=== PATIENT | male | born 1965 | race Caucasian/White ===

== ENCOUNTER → 2016-06-01 | Outpatient (CLI) | payer OTHER ==
[2016-06-01 21:11] LABS: TESTOSTERONE TOTAL 350 ng/dL (348-1197)
== END | disposition home or self-care (01) ==
LOC: LAB 11:24
PROVIDERS: ATTEND Nurse Practitioner Occupational Health
DX: N52.9 Male erectile dysfunction, unspecified (principal)
CPT/HCPCS: 36415; 84403

== ENCOUNTER → 2016-08-19 | Outpatient (CLI) | payer OTHER ==
--- NOTE | 2016-08-19 15:37 | CARD ---
APPROVED REPORT INDICATION Cardiac clearance, Pre op RISK FACTORS Hypertension Obesity PROCEDURE The patient underwent an exercise Stress Test using the Serv[employer] protocol. Blood pressure, heart rate, a nd EKG were monitored. An Echocardiogram was performed by audio video technician in four stages in quad fashion. At peak stress four se lected images were obtained and placed side by side with resting images for comparison. STRESS ECHO FINDINGS The resting Echocardiogram showed normal left ventricular contractility with an estimated Ejection Fr action of about 65 %. Normal augmentation of myocardial wall segments using a 16 segment model. 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 Consent: The procedure was explained to the patient in lay terms. Informed consent was witnessed. Jefferson eout was entered into [employer]. History and Stress Test performed by JACKIE ALVARADO Stress Symptoms LEG FATIGUE, SOA. POST EXERCISE Reason for Termination: Reached target heart rate Target HR: 142 Max HR: 167 bpm 96% of Maximum Predicted HR: 167 bpm Exercise duration: 10:00 min:sec, 3 Stage Exercise capacity: 12.8METs Max Blood Pressure: 170/85mmHg Blood Pressure response to exercise: Normal blood pressure response during stress. Heart Rate response to exercise: WNL Chest Pain: No. Arrhythmia: No. ST Change: No. INTERPRETATION Stress EKG Conclusion: Baseline EKG showed sinus rhythm. No ischemic changes at peak stress. No arr hythmias. <Conclusion> Treadmill exercise stress echocardiogram did not show any evidence of ischemia or infarct. Normal left ventricle systolic function with ejection fraction estimated at 65%. Patient had excellent activity tolerance. Low risk for cardiac events.
== END | disposition home or self-care (01) ==
LOC: ECHO 11:04
PROVIDERS: ATTEND Internal Medicine Cardiovascular Disease
DX: Z01.818 Encounter for other preprocedural examination (principal)
CPT/HCPCS: 93017; 93350

== ENCOUNTER 2019-04-23 11:28 | Emergency (ER) | payer OTHER ==
[~2019-04-23] VITALS: Ht 177.8 cm; Wt 118.1 kg
[2019-04-23 12:00] VITALS: BP 149/84
--- NOTE | 2019-04-23 12:55 | PHYS DOC ---
Past Medical History Past Medical History: Diabetes-Type II, GERD, Hypertension, Other Additional Past Medical Histor: LUPUS, SLEEP APNEA Past Surgical History: No Surgical History Alcohol Use: Occasionally Adult General Chief Complaint Chief Complaint: LOWEREXTREMITY INJURY HPI HPI Patient is a 54 year old male who presents with presents with right great toe pain after fall. Patient reports 2 days ago his foot on some ice, with his niece regarding hours, and his right great toe reflex. States he has had some pain since that time. States he has been walking on it, however slowly, and has had some continued pain in that digit. States he has taken some Tylenol and ibuprofen for discomfort which has helped a little bit. States he has noticed the area to be swollen, states he is able to move it, however has severe increase in discomfort when he tries to extend his toe. Review of Systems Review of Systems Constitutional: Denies fever or chills [] Musculoskeletal: Denies back pain reports pain to right great toe denies pain to knee, legs other discomfort other than to his toe and foot[] Integument: Denies rash or skin lesions reports redness noted to right great toe since his fall[] Neurologic: Denies headache, focal weakness or sensory changes [] Endocrine: Denies polyuria or polydipsia [] All other systems were reviewed and found to be within normal limits, except as documented in this note. Allergies Allergies Allergies Coded Allergies Type Severity Reaction Last Updated Verified Penicillins Allergy Unknown 09/06/13 Yes Physical Exam Physical Exam Constitutional: Well developed, well nourished, no acute distress, non-toxic appearance. [] Cardiovascular:Heart rate regular rhythm, no murmur [] Lungs & Thorax: Bilateral breath sounds clear to auscultation [] Abdomen: Bowel sounds normal, soft, no tenderness, no masses, no pulsatile masses. [] Skin: Warm, dry, no rash. Erythematous to right great toe, medially, near where patient reports tenderness. No lesions noted[] Back: No tenderness, no CVA tenderness. [] Extremities:, no cyanosis, no clubbing, ROM intact, no edema. Tenderness noted on palpation to distal aspect of right great toe, near base of metatarsal. No deformity, no tenderness noted on palpation of toe. Patient able to flex and extend toe, however reports severe increase in pain when he attempts to extend brisk capillary refill to toe noted.[] Neurologic: Alert and oriented X 3, normal motor function, normal sensory function, no focal deficits noted. [] Psychologic: Affect normal, judgement normal, mood normal. [] Current Patient Data Vital Signs Vital Signs Date Time Temp Pulse Resp B/P (MAP) Pulse Ox O2 Delivery O2 Flow Rate FiO2 04/23/19 12:00 98.8 74 16 149/84 (105) 95 Room Air 98.8 EKG EKG [] Radiology/Procedures Radiology/Procedures []Examination: FOOT RIGHT 3V History: Great toe pain and swelling Comparison/Correlation: None Findings: Three-view examination of the right foot was performed. Small calcaneal spur is present. No fracture or bony destruction. Degenerative changes of the first metatarsophalangeal joint are minimal. Subchondral sclerosis of the first metatarsal head noted. Interphalangeal joints are unremarkable for the patient's age. Midfoot is unremarkable. Impression: Subchondral sclerosis of the first metatarsal head which may be related to degenerative change. Minimal first metatarsophalangeal joint narrowing. Electronically signed by: Mauricio Edmondson MD (04/23/2019 1:19 PM) [facility] Course & Med Decision Making Course & Med Decision Making Pertinent Labs and Imaging studies reviewed. (See chart for details) [] Dragon Disclaimer Dragon Disclaimer This electronic medical record was generated, in whole or in part, using a voice recognition dictation system. Departure Departure Impression: Primary Impression: Sprain of right great toe Disposition: 01 HOME, SELF-CARE Condition: GOOD Referrals: MARILYN KOLB (PCP) Patient Instructions: Foot Sprain Additional Instructions: As we discussed, wear the hard-soled shoe for the next week to give your ligaments a chance to improve. Continue tylenol/ibuprofen as needed for discomfort. You may continue to place ice as needed. Follow up with your primary care provider as needed. Problem Qualifiers Primary Impression: Sprain of right great toe Encounter type: initial encounter Qualified Codes: S93.501A - Unspecified sprain of right great toe, initial encounter STEVEN SANCHEZ APRN Apr 23, 2019 12:55
--- NOTE | 2019-04-23 13:22 | RAD ---
Examination: FOOT RIGHT 3V History: Great toe pain and swelling Comparison/Correlation: None Findings: Three-view examination of the right foot was performed. Small calcaneal spur is present. No fracture or bony destruction. Degenerative changes of the first metatarsophalangeal joint are minimal. Subchondral sclerosis of the first metatarsal head noted. Interphalangeal joints are unremarkable for the patient's age. Midfoot is unremarkable. Impression: Subchondral sclerosis of the first metatarsal head which may be related to degenerative change. Minimal first metatarsophalangeal joint narrowing. Electronically signed by: Mauricio Edmondson MD (04/23/2019 1:19 PM) [facility]
== END 2019-04-23 14:00 | disposition home or self-care (01) ==
LOC: ER 11:28
DX: S93.521A Sprain of metatarsophalangeal joint of right great toe, initial encounter (principal); L53.9 Erythematous condition, unspecified; E11.9 Type 2 diabetes mellitus without complications; K21.9 Gastro-esophageal reflux disease without esophagitis; I10 Essential (primary) hypertension; Z88.0 Allergy status to penicillin; W19.XXXA Unspecified fall, initial encounter; Y93.89 Activity, other specified; Y92.89 Other specified places as the place of occurrence of the external cause; Y99.8 Other external cause status
CPT/HCPCS: 73630; 99284